=== PATIENT | female | born 1995 | race African-American/Black ===

== ENCOUNTER 2017-10-31 15:25 | Emergency (ER) | payer OTHER ==
[~2017-10-31] VITALS: Ht 172.7 cm; Wt 195.1 kg
[2017-10-31] MEDS ORDERED: FLOVENT HFA 4444 MCG INH (15:42)
[2017-10-31] MEDS ORDERED: METFORMIN HCL500 MG PO (15:42)
[2017-10-31] MEDS ORDERED: CLEOCIN HCL150 MG PO (16:00)
[2017-10-31] MEDS ORDERED: AFRIN30 ML NASAL (16:00)
[2017-10-31 16:29] VITALS: BP 154/101
== END 2017-10-31 16:29 | disposition home or self-care (01) ==
LOC: ER 15:25
DX: J02.0 Streptococcal pharyngitis (principal); E11.9 Type 2 diabetes mellitus without complications; J45.909 Unspecified asthma, uncomplicated; Z88.0 Allergy status to penicillin